=== PATIENT | male | born 1965 | race Two or more races ===

== ENCOUNTER 2022-10-05 10:39 | Emergency (ER) | payer OTHER ==
[~2022-10-05] VITALS: Ht 185.4 cm; Wt 113.4 kg
[~2022-10-05 10:39] MED LIST: AMBIEN5 MG PO; MEDROLPACK PO; NEURONTIN300 MG PO; SYNTHROID175 MCG PO; WELLBUTRIN SR100 MG PO; XARELTO20 MG
== END 2022-10-05 13:47 | disposition home or self-care (01) ==
LOC: ER 10:39
DX: R50.9 Fever, unspecified (principal); Z88.6 Allergy status to analgesic agent

== ENCOUNTER 2024-06-14 10:15 | Emergency (ER) | payer OTHER ==
[~2024-06-14] VITALS: Ht 185.4 cm; Wt 108.9 kg
[~2024-06-14 10:15] MED LIST changes: +ATORVASTATIN CA10 MG PO
[2024-06-14 11:41] LABS: HEMATOCRIT 42.7 % (39.0-48.0); HEMOGLOBIN 13.8 g/dL (13-16.00); MEAN CELL VOLUME 76.7 fL (80.0-100.00); MEAN CORPUSCULAR HEMOGLOBIN 24.8 pg (27.00-32.0); MEAN CORPUSCULAR HGB CONC 32.4 g/dl (32.0-36.0); RED BLOOD COUNT 5.56 M/uL (4.00-6.00); RED CELL DISTRIBUTION WIDTH 15.8 % (11.5-14.5)
[2024-06-14 11:42] LABS: PLATELET COUNT 111 K/uL (150-450)
== END 2024-06-14 14:27 | disposition home or self-care (01) ==
LOC: ER 10:16
DX: R53.81 Other malaise (principal); A90 Dengue fever [classical dengue]; Z20.822 Contact with and (suspected) exposure to COVID-19; Z88.0 Allergy status to penicillin